=== PATIENT | female | born 1975 | race Two or more races ===

== ENCOUNTER 2020-07-28 14:58 | Emergency (ER) | payer SELFPAY ==
[~2020-07-28] VITALS: Ht 172.7 cm; Wt 68.9 kg
[2020-07-28 16:01] LABS: BASOPHILS % (AUTO) 1 % (0-1); EOSINOPHILS % (AUTO) 1 % (1-7); LYMPHOCYTES % (AUTO) 18 % (22-44); MEAN CORPUSCULAR HEMOGLOBIN 30.1 pg (27.0-34.8); MEAN CORPUSCULAR HGB CONC 33.4 g/dL (32.4-35.8); MONOCYTES % (AUTO) 18 % (2-9); NEUTROPHILS % (AUTO) 63 % (42-75); PLATELET COUNT 561 x10^3/uL (130-400); RED BLOOD COUNT 3.87 x10^6/uL (3.82-5.3); RED CELL DISTRIBUTION WIDTH 18.6 % (9.6-15.2)
[2020-07-28 16:15] LABS: ALANINE AMINOTRANSFERASE 35 U/L (12-78); ALBUMIN 2.9 g/dL (3.4-5.0); ANION GAP 7 mmol/L (5-15); CALCIUM 9.9 mg/dL (8.5-10.1); CHLORIDE 100 mmol/L (98-107)
[2020-07-28 16:19] LABS: ALKALINE PHOSPHATASE 86 U/L (45-117); BILIRUBIN,TOTAL 0.3 mg/dL (0.2-1.0); TOTAL PROTEIN 7.7 g/dL (6.4-8.2)
--- NOTE | 2020-07-28 16:43 | NUR ---
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
--- NOTE | 2020-07-28 17:06 | NUR ---
ASSUMED CARE OF PATIENT. PATIENT REPORTS SOME SOB, PT SAID SHE IS AWARE SHE HAS TWO BILATERAL PLEURAL EFFUSIONS. HX OF BREAST CANCER. PT REPORTS HIVES TO BACK AND CHEST DUE TO THE RADIATION. VS STABLE. PT IS HYPERTENSIVE, HX OF. AT BEDSIDE. CALL LIGHT IN PLACE. WILL CONTINUE TO MONITOR.
[2020-07-28 18:04] VITALS: BP 139/86
== END 2020-07-28 18:07 | disposition home or self-care (01) ==
LOC: ED 15:45
DX: J90 Pleural effusion, not elsewhere classified (principal); R06.00 Dyspnea, unspecified; D72.819 Decreased white blood cell count, unspecified; C50.919 Malignant neoplasm of unspecified site of unspecified female breast; R06.02 Shortness of breath; I10 Essential (primary) hypertension
CPT/HCPCS: 36415; 71046; 80053; 83880; 85025; 93005; 99285

== ENCOUNTER → 2020-07-28 | Outpatient (CLI) | payer SELFPAY | END | disposition home or self-care (01) | LOC: RAD 13:42 | PROVIDERS: ATTEND Internal Medicine Hematology & Oncology | DX: Z45.2 Encounter for adjustment and management of vascular access device (principal); C50.911 Malignant neoplasm of unspecified site of right female breast; C50.912 Malignant neoplasm of unspecified site of left female breast | CPT/HCPCS: 36573; C1751 ==

== ENCOUNTER 2020-10-06 12:41 | Outpatient (CLI) | payer SELFPAY | END 2020-10-06 23:59 | disposition home or self-care (01) | LOC: RAD 12:41 | PROVIDERS: ATTEND Internal Medicine Hematology & Oncology | DX: C50.919 Malignant neoplasm of unspecified site of unspecified female breast (principal) | CPT/HCPCS: 36573; C1751 ==